=== PATIENT | female | born 1960 | race Caucasian/White ===

== ENCOUNTER 2018-12-31 19:49 | Emergency (ER) | payer MEDICARE, OTHER ==
[~2018-12-31] VITALS: Ht 152.4 cm; Wt 59.0 kg
[~2018-12-31 19:49] MED LIST: ALBUTEROL0.09 MG/A2 INH; CALCIUM PO; CENESTIN0.3 MG PO; CENTRUM SILVER1 TA1 PO; CLARITIN10 MG PO; DIAZEPAM10 MG PO; FISH OIL PO; FLAX PO; KEFLEX500 MG PO; LIDEX0.05% T; LOMOTIL 0.025 M1 TA1 PO; MORPHINE SULFAT15 M1 PO; NORVASC5 MG PO; OXYCODONE HCL5 MG PO; PREDNICOT20 MG PO; PREMARIN0.625 MG PO; PRILOSEC40 MG PO; VALIUM5 MG PO; ZOFRAN4 MG PO; [UNRECOGNIZED DRUG - OTHER] PO; [UNRECOGNIZED DRUG - OTHER] PO
[2018-12-31 21:16] LABS: BASO # 0.1 10*3/uL (0.0-0.1); BASO % 0.7 % (0.0-1.0); EOS # 0.1 10*3/uL (0.0-0.4); EOS % 1.6 % (1.0-4.0); HEMATOCRIT 39.2 % (37.0-47.0); LYMPH # 2.3 10*3/uL (1.3-4.4); LYMPH % 33.1 % (27.0-41.0); MEAN CELL VOLUME 93.1 fl (81.0-99.0); MEAN CORPUSCULAR HGB 30.9 pg (27.0-31.0); MEAN CORPUSCULAR HGB CONC 33.2 g/dl (33.0-37.0); MEAN PLATELET VOLUME 10.6 fl (9.6-12.3); MONO # 0.6 10*3/uL (0.1-1.0); MONO % 8.2 % (3.0-9.0); PLATELET COUNT AUTOMATED 204 10*3/uL (130-400); RED BLOOD COUNT 4.21 10*6/uL (4.10-5.10); RED CELL DISTRI WIDTH 12.6 % (0-14.5); WHITE BLOOD COUNT 7.1 10*3/uL (4.8-10.8)
[2018-12-31 21:53] LABS: ALBUMIN 3.6 gm/dl (3.1-4.5); ALKALINE PHOSPHATASE 78 U/L (45-117); BUN 15 mg/dl (7-24); CHLORIDE 106 mmol/L (98-107); CREATININE 0.78 mg/dL (0.55-1.02); POTASSIUM 4.2 mmol/L (3.5-5.1); SGOT/AST 19 IU/L (3-35); SGPT/ALT 28 U/L (12-78); SODIUM 141 mmol/L (136-145); TOTAL PROTEIN 6.7 gm/dL (6.4-8.2)
[2018-12-31] MEDS ORDERED: AMOXICILLIN500 M2 PO (22:33)
[2018-12-31] MEDS ORDERED: AUGMENTIN 875875 MG PO (22:48)
== END 2018-12-31 23:00 | disposition home or self-care (01) ==
LOC: ED 19:49
PROVIDERS: Physician Assistant
DX: J02.9 Acute pharyngitis, unspecified (principal); R59.0 Localized enlarged lymph nodes; R05 Cough; R49.0 Dysphonia; Z88.6 Allergy status to analgesic agent; Z79.899 Other long term (current) drug therapy

== ENCOUNTER → 2020-05-03 | Outpatient (CLI) | payer OTHER ==
[~2020-05-03] MED LIST changes: +AMOXICILLIN500 M2 PO; +AUGMENTIN 875875 MG PO
== END | disposition home or self-care (01) ==
LOC: COVID19 13:23
PROVIDERS: ATTEND Internal Medicine
DX: U07.1 COVID-19 (principal); J34.89 Other specified disorders of nose and nasal sinuses

== ENCOUNTER 2020-05-14 14:28 | Emergency (ER) | payer OTHER ==
[~2020-05-14] VITALS: Ht 152.4 cm; Wt 59.0 kg
== END 2020-05-14 17:08 | disposition home or self-care (01) ==
LOC: ED 14:28
DX: J45.909 Unspecified asthma, uncomplicated (principal); Z79.899 Other long term (current) drug therapy; Z20.828 Contact with and (suspected) exposure to other viral communicable diseases

== ENCOUNTER 2020-11-16 13:49 | Emergency (ER) | payer OTHER ==
[~2020-11-16] VITALS: Ht 152.4 cm; Wt 61.2 kg
== END 2020-11-16 17:21 | disposition home or self-care (01) ==
LOC: ED 13:49
DX: S20.212A Contusion of left front wall of thorax, initial encounter (principal); Z88.6 Allergy status to analgesic agent; Z88.8 Allergy status to other drugs, medicaments and biological substances; Z79.899 Other long term (current) drug therapy; Z90.711 Acquired absence of uterus with remaining cervical stump; W22.8XXA Striking against or struck by other objects, initial encounter; Y93.89 Activity, other specified; Y92.89 Other specified places as the place of occurrence of the external cause; Y99.8 Other external cause status

== ENCOUNTER 2021-02-19 10:54 | Emergency (ER) | payer OTHER ==
[~2021-02-19] VITALS: Ht 152.4 cm; Wt 63.5 kg
[2021-02-19] MEDS ORDERED: PREDNISONE50 MG PO (11:17)
== END 2021-02-19 11:18 | disposition home or self-care (01) ==
LOC: ED 10:54
DX: T63.461A Toxic effect of venom of wasps, accidental (unintentional), initial encounter (principal); Z88.6 Allergy status to analgesic agent; Z88.8 Allergy status to other drugs, medicaments and biological substances; Z79.899 Other long term (current) drug therapy; Y92.89 Other specified places as the place of occurrence of the external cause

== ENCOUNTER 2022-06-01 11:05 | Emergency (ER) | payer OTHER ==
[~2022-06-01] VITALS: Ht 152.4 cm; Wt 61.2 kg
[~2022-06-01 11:05] MED LIST changes: +PREDNISONE50 MG PO
[2022-06-01 12:34] LABS: BASO % 0.5 % (0.0-1.0); EOS # 0.1 10*3/uL (0.0-0.4); EOS % 0.9 % (1.0-4.0); HEMATOCRIT 40.7 % (37.0-47.0); LYMPH # 1.3 10*3/uL (1.3-4.4); LYMPH % 23.3 % (27.0-41.0); MEAN CELL VOLUME 90.6 fl (81.0-99.0); MEAN CORPUSCULAR HGB 31.2 pg (27.0-31.0); MEAN CORPUSCULAR HGB CONC 34.4 g/dl (33.0-37.0); MEAN PLATELET VOLUME 10.6 fl (9.6-12.3); MONO # 0.5 10*3/uL (0.1-1.0); MONO % 9.6 % (3.0-9.0); NEUT # 3.7 10*3/uL (2.3-7.9); NEUT % 65.3 % (47.0-73.0); PLATELET COUNT AUTOMATED 214 10*3/uL (130-400); RED BLOOD COUNT 4.49 10*6/uL (4.10-5.10); WHITE BLOOD COUNT 5.6 10*3/uL (4.8-10.8)
[2022-06-01 12:48] LABS: ACT PARTIAL THROMBO TIME 27.6 SECONDS (20.0-32.1)
[2022-06-01 12:55] LABS: ALKALINE PHOSPHATASE 61 U/L (46-116); BUN 17 mg/dl (9-23); CHLORIDE 103 mmol/L (98-107); LIPASE 41 U/L (12-53); POTASSIUM 3.7 mmol/L (3.4-5.1); SGPT/ALT 13 U/L (10-49); TOTAL PROTEIN 6.3 gm/dL (6.0-8.0)
[2022-06-01 13:28] LABS: BILIRUBIN Negative (Negative); BLOOD Negative (Negative); CLARITY Clear (Clear); COLOR Yellow (Yellow); GLUCOSE Negative (Negative); KETONE Negative (Negative); LEUKO ESTERASE 1+ (Negative); NITRITE Negative (Negative); PH 5.5 (4.5-8.0); SPECIFIC GRAVITY 1.015 (1.001-1.030); UROBILINOGEN 0.2 E.U./dl (0.0-1.0)
[2022-06-01 13:42] LABS: BACTERIA 1+
== END 2022-06-01 18:00 | disposition left against medical advice (07) ==
LOC: ED 11:05
PROVIDERS: Emergency Medicine
DX: R51.9 Headache, unspecified (principal); R06.02 Shortness of breath; Z20.822 Contact with and (suspected) exposure to COVID-19

== ENCOUNTER 2024-12-29 17:04 | Emergency (ER) | payer OTHER ==
[~2024-12-29] VITALS: Ht 152.4 cm; Wt 62.1 kg
[2024-12-29 17:45] LABS: BASO # 0.1 10*3/uL (0.0-0.1); BASO % 0.7 % (0.0-1.0); EOS # 0.1 10*3/uL (0.0-0.4); EOS % 1.8 % (1.0-4.0); MEAN CELL VOLUME 92.7 fl (81.0-99.0); MEAN CORPUSCULAR HGB 30.9 pg (27.0-31.0); MEAN PLATELET VOLUME 9.9 fl (9.6-12.3); MONO # 0.6 10*3/uL (0.1-1.0); MONO % 8.0 % (3.0-9.0); NEUT # 4.9 10*3/uL (2.3-7.9); NEUT % 63.5 % (47.0-73.0); NUCLEATED RED BLOOD CELL 0.0 % (0.0-0.0); NUCLEATED RED BLOOD CELL 0.0 10*3/uL (0.0-0.0); PLATELET COUNT AUTOMATED 222 10*3/uL (130-400); RED CELL DISTRI WIDTH 12.9 % (0-14.5)
[2024-12-29 18:14] LABS: BUN 20 mg/dl (9-23)
[2024-12-29] MEDS ORDERED: MEDROL DOSEPAK4 MG PO (20:11)
== END 2024-12-29 20:16 | disposition home or self-care (01) ==
LOC: ED 17:04
PROVIDERS: Nurse Practitioner Family
DX: J06.9 Acute upper respiratory infection, unspecified (principal); F10.90 Alcohol use, unspecified, uncomplicated; Z88.5 Allergy status to narcotic agent; Z88.8 Allergy status to other drugs, medicaments and biological substances; Y90.9 Presence of alcohol in blood, level not specified